=== PATIENT | female | born 2000 | race Caucasian/White ===

== ENCOUNTER 2021-07-30 20:37 | Emergency (ER) | payer OTHER, SELFPAY ==
--- NOTE | ~2021-07-30 | XR_ITS ---
EXAMINATION: XR abdomen/kub 1V INDICATION: Left lower quadrant pain TECHNIQUE: Supine views of the abdomen were obtained on three radiographs. COMPARISON: None FINDINGS: There is a moderate volume of colonic stool. No dilated loops of bowel are seen. The bowel gas pattern is normal. The visualized lung bases are clear. IMPRESSION: 1. No radiographic correlate for the patient's symptoms. Reviewed, dictated and finalized at location F.
[2021-07-30 21:16] VITALS: BP 115/72; PULSE 922; RESP 18; TEMP 36.8; O2SAT 100
[2021-07-30 21:53] LABS: Basophils Absolute Auto 0.1 K/mm3 (0.0-0.1); Basophils Percent Auto 0.8 % (0.2-1.2); Eosinophils Absolute Auto 0.2 K/mm3 (0-0.3); Eosinophils Percent Auto 2.6 % (0-4.4); Hematocrit 39.6 % (37.0-47.0); Hemoglobin 13.3 g/dL (12.0-15.0); Immature Granulocyte Absolute 0.02 K/mm3 (0.00-0.031); Immature Granulocyte Percent A 0.2 % (0-0.5); Lymphocytes Absolute Auto 3.28 K/mm3 (0.9-3.2); Lymphocytes Percent Auto 35.6 % (18.3-44.2); Mean Corpuscular HGB Conc 33.6 g/dl (32-36); Mean Corpuscular Hemoglobin 29.2 pg (26-34); Mean Platelet Volume 10.4 fl (7.4-10.4); Monocytes Absolute Auto 0.7 K/mm3 (0.1-0.6); Monocytes Percent Auto 7.7 % (2.6-8.5); Neutrophils Absolute Auto 4.9 K/mm3 (1.3-6.7); Neutrophils Percent Auto 53.1 % (45.5-73.1); Platelet Count Result 342 k/mm3 (150-375); Red Blood Count 4.55 M/mm3 (4.2-5.4); Red Cell Distribution Width 12.4 % (11.5-14.5); White Blood Count 9.2 K/mm3 (4.5-10.0)
[2021-07-30 21:54] LABS: Appearance Urine Clear (Clear); Bilirubin Urine Negative (Negative); Blood Urine Negative (Negative); Color Urine Yellow (Yellow); Glucose Urine UA Negative (Negative); Ketones Urine 1+ mg/dL (Negative); Leukocyte Esterase Ur Trace LEU/UL (Negative); Nitrate Urine Negative (Negative); Protein Urine Negative (Negative); Specific Grav Ur 1.015 (1.001-1.035); Urobilinogen Urine 0.2 mg/dL (<2.0); pH Urine 7.5 (5.0-9.0)
[2021-07-30 21:58] LABS: Bacteria Urine Trace /hpf; Mucus Urine Rare /lpf; Squamous Epithelial Cell Urine Moderate /hpf (Few); WBC Urine 0-3 /hpf
[2021-07-30 22:00] LABS: Add Urine Microscopic? YES
[2021-07-30 22:03] LABS: Alanine Aminotransferase 15 U/L (6-35); Albumin Level 4.5 g/dL (3.5-5.1); Alkaline Phosphatase 71 U/L (38-126); Anion Gap 6 mmol/L (8-16); Aspartate Amino Transferase 28 U/L (14-36); Bilirubin,Total 0.4 mg/dL (0.2-1.3); Blood Urea Nitrogen 18 mg/dL (7-17); Calcium 9.1 mg/dL (8.4-10.2); Carbon Dioxide 26 mmol/L (22-30); Chloride 104 mmol/L (98-107); Estimated CRCL calculation 98 ml/min; Estimated Glomerular Filt Rate > 60; Glucose 90 mg/dL (65-110); Lipase 75 U/L (23-300); Potassium 4.3 mmol/L (3.4-5.0); Sodium 136 mmol/L (137-145)
[2021-07-30 22:03] LABS: Urine Pregnancy Test Negative
[2021-07-30 22:04] LABS: Pregnancy On Board Control Positive
[2021-07-30 22:22] VITALS: BP 107/76; PULSE 73; RESP 18; O2SAT 97
[2021-07-30] MEDS: MORPHINE SULFATE (*CRX) 4 MG/ML INJ IV PUSH (22:24)
--- NOTE | 2021-07-30 22:48 | ED.GENADULT ---
HPI - General Adult General Chief complaint: Abdominal Pain Stated complaint: abdominal pain Time Seen by Provider: 07/30/21 21:26 History of Present Illness HPI narrative: Patient is a 21-year-old female who presents ER with left-sided abdominal pain. Ongoing for 2 days. Reports she woke up with it yesterday morning. Is constant. Its left mid abdomen and upper mid abdomen. Reports yesterday she had nausea and could taste stomach contents in her mouth had no emesis. She has taken no medications for her pain. She reports if she lays in position she feels better. She is unsure of any modifying factors. She has no urinary frequency urgency or dysuria. No vaginal bleeding or vaginal discharge. No low pelvic pain. Reports she has not had pain like this previously. She does not believe that she is constipated. No diarrhea. No known sick contacts. Related Data Allergies Allergy/AdvReac Type Severity Reaction Status Date / Time No Known Allergies Allergy Unverified 08/07/15 15:34 Review of Systems Review of Systems: All systems reviewed & are unremarkable except as noted in HPI and below Constitutional: Constitutional: Denies chills, Denies fatigue and Denies fever(s) ENT: Denies nasal congestion and Denies sore throat Gastrointestinal: Gastrointestinal: Reports abdominal pain, Denies constipation, Reports heartburn, Reports nausea and Denies vomiting Genitourinary: Genitourinary: Denies abnormal vaginal bleeding, Denies nocturia, Denies dysuria, Denies pelvic pain and Denies flank pain Neurologic: Denies focal weakness and Denies numbness PMFSH Past Medical History Medical History (Updated 07/30/21 @ 23:27 by Ismael Pena MD) Polycystic ovarian syndrome Surgical History Surgical History (Updated 07/30/21 @ 22:51 by Ismael Pena MD) No pertinent past surgical history Social History Social History (Updated 07/30/21 @ 22:51 by Ismael Pena MD) Smoking status: Never smoker Exam Narrative: GENERAL: Well-appearing, well-nourished, and in no acute distress. HEAD: Normocephalic, atraumatic. NECK: Supple. CHEST: Clear to auscultation. No respiratory distress. HEART: Regular rate and rhythm. Normal peripheral pulses. ABDOMEN: Soft, nontender, nondistended. EXTREMITIES: Normal range of motion. No edema. SKIN: Warm, dry, no rash. NEURO: Alert and oriented x3. PSYCH: Normal mood and affect. Course Course Emergency Course: Nonfocal abdominal exam. Labs unremarkable. Trace ketones in urine with mild contamination. Moderate stool on KUB. D/c. Vital Signs Vital signs: Vital Signs Temperature 98.2 F 07/30/21 21:16 Pulse Rate 922 H 07/30/21 21:16 Respiratory Rate 18 07/30/21 21:16 Blood Pressure 115/72 07/30/21 21:16 Pulse Oximetry 100 07/30/21 21:16 Oxygen Delivery Room Air 07/30/21 21:16 Temperature 98.2 F 07/30/21 21:16 Pulse Rate 73 07/30/21 22:22 Respiratory Rate 18 07/30/21 22:22 Blood Pressure 107/76 07/30/21 22:22 Pulse Oximetry 97 07/30/21 22:22 Oxygen Delivery Room Air 07/30/21 21:16 Medical Decision Making Vital Signs Vital Signs: Vital Signs Temperature 98.2 F 07/30/21 21:16 Pulse Rate 922 H 07/30/21 21:16 Respiratory Rate 18 07/30/21 21:16 Blood Pressure 115/72 07/30/21 21:16 Pulse Oximetry 100 07/30/21 21:16 Oxygen Delivery Room Air 07/30/21 21:16 Temperature 98.2 F 07/30/21 21:16 Pulse Rate 73 07/30/21 22:22 Respiratory Rate 18 07/30/21 22:22 Blood Pressure 107/76 07/30/21 22:22 Pulse Oximetry 97 07/30/21 22:22 Oxygen Delivery Room Air 07/30/21 21:16 Lab Data Result diagrams: 07/30/21 21:46 07/30/21 21:46 Labs: Lab Results 07/30/21 07/30/21 07/30/21 Range/Units 21:45 21:46 21:46 WBC 9.2 (4.5-10.0) K/mm3 RBC 4.55 (4.2-5.4) M/mm3 Hgb 13.3 (12.0-15.0) g/dL Hct 39.6 (37.0-47.0) % MCV 87.0 (80-100)
[2021-07-30 23:41] VITALS: BP 104/63; PULSE 56; RESP 18; O2SAT 97
== END 2021-07-30 23:55 | disposition home or self-care (01) ==
PROVIDERS: Emergency Provider Emergency Medicine; PCP Physician Assistant
DX: R10.12 Left upper quadrant pain (principal); E28.2 Polycystic ovarian syndrome
CPT/HCPCS: 36415; 74018; 80053; 81001; 81025; 83690; 85025; 96374; 99283; J2270